=== PATIENT | female | born 1965 | race African-American/Black ===

== ENCOUNTER 2021-03-30 08:27 | Emergency (ER) | payer OTHER ==
[2021-03-30 08:46] VITALS: TEMP 97.9; BMI 36.6
[2021-03-30] MEDS ORDERED: amLODIPine BESYLATE 10 MG TABLET (FP) PO ONE (09:25)
[2021-03-30] MEDS ORDERED: amLODIPine BESYLATE 5 MG TABLET (FP) ONE (09:38)
[2021-03-30 09:50] VITALS: BP 199/75; PULSE 76
== END 2021-03-30 10:51 | disposition home or self-care (01) ==
LOC: JER 08:27
DX: H61.21 Impacted cerumen, right ear (principal); I10 Essential (primary) hypertension
CPT/HCPCS: 99283-25